=== PATIENT | female | born 1970 | race Caucasian/White ===

== ENCOUNTER → 2023-05-27 11:02 | Outpatient (REF) | payer BC, SELFPAY | LOC: HWWDC 11:02 | PROVIDERS: ATTENDING PHYSICIAN Obstetrics & Gynecology; FAMILY PHYSICIAN Internal Medicine | DX: Z12.31 Encounter for screening mammogram for malignant neoplasm of breast (principal) | CPT/HCPCS: 77063; 77067 ==

== ENCOUNTER → 2024-06-07 12:19 | Outpatient (REF) | payer BC, SELFPAY | LOC: HWWDC 12:19 | PROVIDERS: ATTENDING PHYSICIAN Internal Medicine; REFERRING PHYSICIAN Obstetrics & Gynecology | DX: Z12.31 Encounter for screening mammogram for malignant neoplasm of breast (principal) | CPT/HCPCS: 77063; 77067 ==